=== PATIENT | female | born 1970 | race African-American/Black ===

== ENCOUNTER → 2017-05-08 | Outpatient (CLI) | payer BC ==
[~2017-05-08] MED LIST: AMITIZA 24 MCG24 MC1 PO; IBUPROFEN 400400 M2 PO; IRON325 PO; MULTIVITAMINS PO; ONDANSETRON HCL4 M2 PO; PERCOCET PO
== END ==
LOC: RAD 15:09
DX: Z12.31 Encounter for screening mammogram for malignant neoplasm of breast (principal)

== ENCOUNTER → 2018-07-19 | Outpatient (CLI) | payer BC | LOC: RAD 13:58 | DX: Z12.31 Encounter for screening mammogram for malignant neoplasm of breast (principal) ==

== ENCOUNTER → 2019-02-25 | Outpatient (CLI) | payer OTHER | LOC: CAT 15:01 | DX: Z13.6 Encounter for screening for cardiovascular disorders (principal); I25.10 Atherosclerotic heart disease of native coronary artery without angina pectoris; E78.00 Pure hypercholesterolemia, unspecified ==

== ENCOUNTER → 2019-06-05 | Outpatient (CLI) | payer BC | LOC: ULTRA 15:01 | DX: E04.1 Nontoxic single thyroid nodule (principal) ==

== ENCOUNTER → 2019-07-22 | Outpatient (CLI) | payer BC | LOC: RAD 11:42 | DX: Z12.31 Encounter for screening mammogram for malignant neoplasm of breast (principal) ==

== ENCOUNTER → 2021-06-14 | Outpatient (CLI) | payer BC | LOC: BC 15:03 | PROVIDERS: ATTEND Family Medicine | DX: Z12.31 Encounter for screening mammogram for malignant neoplasm of breast (principal); N64.89 Other specified disorders of breast ==

== ENCOUNTER → 2021-09-15 | Outpatient (CLI) | payer OTHER | LOC: CAT 14:50 | PROVIDERS: ATTEND Family Medicine | DX: Z13.6 Encounter for screening for cardiovascular disorders (principal); E78.00 Pure hypercholesterolemia, unspecified; I25.10 Atherosclerotic heart disease of native coronary artery without angina pectoris ==